=== PATIENT | male | born 1990 | race Caucasian/White ===

== ENCOUNTER 2017-04-02 07:42 | Inpatient (IN) | payer MEDICAID ==
[2017-04-02 08:38] LABS: BASOPHILS 0.2 % (0-2); HEMATOCRIT 43.7 % (42.0-54.0); HEMOGLOBIN 15.4 g/dL (13.5-17.5); IMMATURE GRANULOCYTES 0.2 % (0-5); LYMPHOCYTES 36.6 % (15-50); MCH 30.3 pg (26.0-34.0); MCHC 35.2 g/dL (31.0-37.0); MCV 85.9 fL (80.0-100.0); MEAN PLATELET VOLUME 8.8 fL (7.4-10.4); MONOCYTES 6.9 % (2-11); NEUTROPHILS 54.1 % (40-80); RBC 5.09 10x6/uL (4.20-6.10); RDW 12.3 % (11.5-14.5); WBC 5.9 10x3/uL (4.8-10.8)
[2017-04-02 08:40] LABS: PLATELET COUNT 212 10x3/uL (130-400)
[2017-04-02 08:51] LABS: ALBUMIN 3.9 g/dL (3.4-5.0); ALKALINE PHOSPHATASE 48 U/L (46-116); ALT (SGPT) 35 U/L (10-68); BILIRUBIN - TOTAL 0.38 mg/dL (0.2-1.3); CALC OSMOLALITY 277 mosm/kg (275-300); CALCIUM 9.1 mg/dL (8.5-10.1); CARBON DIOXIDE 27.6 mmol/L (21.0-32.0); CHLORIDE - SERUM 105 mmol/L (98-107); CREATININE - SERUM 1.1 mg/dL (0.6-1.3); GLUCOSE 90 mg/dL (74-106); POTASSIUM - SERUM 4.1 mmol/L (3.5-5.1); PROTEIN - SERUM 7.2 g/dL (6.4-8.2); SODIUM 139 mmol/L (136-145); UREA NITROGEN 12 mg/dL (7-18); eGFR NON AFRICAN AMERICAN 85 mL/min (90-120)
[2017-04-02 09:01] LABS: CKMB 0.6 U/L (0.0-3.6); CREATINE KINASE 91 UL (21-232); TROPONIN-I < 0.017 ng/mL (0.000-0.060)
[2017-04-02 11:26] LABS: APPEARANCE CLEAR (CLEAR); BILIRUBIN NEGATIVE (NEGATIVE); COLOR YELLOW (YELLOW); GLUCOSE NEGATIVE (NEGATIVE); KETONE NEGATIVE (NEGATIVE); NITRITE NEGATIVE (NEGATIVE); PROTEIN NEGATIVE (NEGATIVE); SPECIFIC GRAVITY 1.005 (1.005-1.020); UROBILINOGEN NORMAL (NORMAL)
[2017-04-02 11:41] LABS: UDS - AMPHET NEGATIVE QUAL (NEGATIVE); UDS - BARB NEGATIVE QUAL (NEGATIVE); UDS - BENZO NEGATIVE QUAL (NEGATIVE); UDS - COCAINE NEGATIVE QUAL (NEGATIVE); UDS - OPIATE NEGATIVE QUAL (NEGATIVE); UDS - PCP NEGATIVE QUAL (NEGATIVE); UDS - THC NEGATIVE QUAL (NEGATIVE)
[2017-04-02 14:12] VITALS: BP 121/74; BMI 24.2
[2017-04-02 14:23] VITALS: BP 121/74
--- NOTE | 2017-04-02 14:28 | NUR ---
RECEIVED TO ROOM 2235 VIA WC FROM ED. A/O X3. FATHER AT BEDSIDE. BALANCE IS OFF SLIGHTLY. SOME WEAKNESS NOTED TO RIGHT SIDE. DENIES NEEDS. SKIN IS INTACT WITHOUT REDNESS.
--- NOTE | 2017-04-02 14:43 | NUR ---
PT AOX4 RESP EVEN AND NONLABORED IV TO LEFT AC PATENT AND INTACT PT DENIES PAIN AT THIS TIME SRX2 BED AT LOWEST SETTING CALL LIGHT WITHIN REACH WILL CONTINUE TO MONITOR
[2017-04-02 18:50] LABS: APPEARANCE - CSF CLEAR; RBC - CSF 0 cmm (0-0)
[2017-04-02 19:16] LABS: GLUCOSE - CSF 56 MG/DL (40-75)
[2017-04-02 19:17] LABS: PROTEIN - CSF 62 MG/DL (12-60)
--- NOTE | 2017-04-02 19:47 | NUR ---
REC'D LYING IN BED. ALERT AND ORIENTED X4. DENIED PAIN AT THIS TIME. C/O BLURRED VISION AND NOT BEING ABLE TO PROCESS INFORMATION CORECTLY. HAS SOME RIGHT SIDED WEAKNESS, RIGHT REFRIGERATION ENGINEERING TEACHER ARE OFF. REPORTED BEING OFF BALANCE WHEN HE STANDS UP. INSTRUCTED TO TO GET UP WITHOUT NOTIFYING NURSE OR DIRECTOR OF LABOR AND DELIVERY FIRST. VERBALIZED UNDERSTANDING. INSTRUCTED TO CALL IF NEEDED ANYTHING, VERBALIZED UNDERSTANDING. BED LOW, LOCKED, CALL LIGHT IN REACH. WILL CONT TO MONITOR.
[2017-04-02 20:00] VITALS: BP 136/76
[2017-04-03] VITALS (7 sets, daily range): BP systolic 108–138; BP diastolic 59–84
--- NOTE | 2017-04-03 01:30 | NUR ---
PT RESTING QUIETLY, EYES CLOSED. RESP EVEN, UNLABORED. NO DISTRESS NOTED. CONTINUE BOILER TUBE REAMER'S PLAN OF CARE.
[2017-04-03 05:39] LABS: BASOPHILS 0 % (0-2); EOSINOPHILS 2.3 % (0-7); HEMATOCRIT 40.7 % (42.0-54.0); HEMOGLOBIN 14.3 g/dL (13.5-17.5); IMMATURE GRANULOCYTES 0.2 % (0-5); LYMPHOCYTES 33.8 % (15-50); MCHC 35.1 g/dL (31.0-37.0); MCV 85.5 fL (80.0-100.0); MEAN PLATELET VOLUME 8.7 fL (7.4-10.4); MONOCYTES 8.4 % (2-11); NEUTROPHILS 55.3 % (40-80); PLATELET COUNT 205 10x3/uL (130-400); RBC 4.76 10x6/uL (4.20-6.10); RDW 12.2 % (11.5-14.5); WBC 5.1 10x3/uL (4.8-10.8)
[2017-04-03 06:14] LABS: CALC OSMOLALITY 281 mosm/kg (275-300); CALCIUM 9.1 mg/dL (8.5-10.1); CARBON DIOXIDE 27.7 mmol/L (21.0-32.0); CHLORIDE - SERUM 106 mmol/L (98-107); CREATININE - SERUM 0.9 mg/dL (0.6-1.3); GLUCOSE 102 mg/dL (74-106); SODIUM 142 mmol/L (136-145); UREA NITROGEN 11 mg/dL (7-18); eGFR NON AFRICAN AMERICAN > 90 mL/min (90-120)
--- NOTE | 2017-04-03 07:40 | NUR ---
PT ASSESSMENT COMPLETE SEE FLOW SHEET PT HAS NOTED WEAKNESS TO LEFT UPPER EXTREMITY REPORTED PER OFFGOING NURSE THAT PT HAD RIGHT SIDED WEAKNESS PRIOR. PT CORROBORATES THAT STORY. PT FAMILY AT BEDSIDE. COMPLAINS OF HEADACHE
--- NOTE | 2017-04-03 10:51 | NUR ---
PT RESTING IN BED WITH EYES CLOSED NO ACUTE DISTRESS OTED VOICES ALL NEEDS TO STAFF CALL LIGHT IN REACH.
--- NOTE | 2017-04-03 11:11 | NUR ---
SLEEPING AND POSITIONED ON RIGHT SIDE AT THIS TIME. IV INFUSING WITHOUT S/S OF INFILTRATION PRESENT. FATHER AT BEDSIDE AND CALL LIGHT IN REACH, WILL CONTINUE WITH PLAN OF CARE.
--- NOTE | 2017-04-03 13:55 | NUR ---
PT RESTING IN BED COMPLAINTS OF PAIN TO NECK AND HEADACHE GIVEN TYLENOL PRN. NPO AT THIS TIME AWAITING ABDOMINAL ULTRASOUND
--- NOTE | 2017-04-03 15:56 | NUR ---
PT HAVING ULTRASOUND OF ABDOMEN AT THIS TIME IN ROOM
--- NOTE | 2017-04-03 20:15 | NUR ---
PATIENT RESTING IN BED WITH GUEST AT BEDSIDE AND DENIES NEEDS AT THIS TIME. BED IN LOWEST POSITION AND CALL LIGHT WITHIN REACH. ENCOURAGED THE PATIENT TO CALL IF HE HAS NEEDS.
--- NOTE | 2017-04-03 21:00 | NUR ---
REMINDED THE PATIENT THAT WE NEED A STOOL SAMPLE THE NEXT TIME HE HAS A BM AND COMFIRMED THAT THERE IS A HAT IN THE TOILET AND A SPECIMEN CUP IN THE ROOM. THE PATIENT VERBALIZED UNDERSTANDING.
[2017-04-04 04:06] VITALS: BP 130/82
[2017-04-04 05:49] LABS: BASOPHILS 0 % (0-2); EOSINOPHILS 0 % (0-7); HEMATOCRIT 44.4 % (42.0-54.0); IMMATURE GRANULOCYTES 0.2 % (0-5); LYMPHOCYTES 7.4 % (15-50); MCH 30.5 pg (26.0-34.0); MCV 84.6 fL (80.0-100.0); MONOCYTES 2.9 % (2-11); NEUTROPHILS 89.5 % (40-80); RBC 5.25 10x6/uL (4.20-6.10); RDW 12.1 % (11.5-14.5)
[2017-04-04 05:52] LABS: PLATELET COUNT 277 10x3/uL (130-400); WBC 17.1 10x3/uL (4.8-10.8)
[2017-04-04 06:31] LABS: ALBUMIN 4.4 g/dL (3.4-5.0); ALKALINE PHOSPHATASE 56 U/L (46-116); ALT (SGPT) 34 U/L (10-68); CALC OSMOLALITY 276 mosm/kg (275-300); CALCIUM 9.8 mg/dL (8.5-10.1); CARBON DIOXIDE 22.7 mmol/L (21.0-32.0); CHLORIDE - SERUM 104 mmol/L (98-107); CREATININE - SERUM 1.1 mg/dL (0.6-1.3); GLUCOSE 137 mg/dL (74-106); POTASSIUM - SERUM 4.3 mmol/L (3.5-5.1); PROTEIN - SERUM 7.9 g/dL (6.4-8.2); SODIUM 138 mmol/L (136-145); UREA NITROGEN 11 mg/dL (7-18); eGFR NON AFRICAN AMERICAN 85 mL/min (90-120)
--- NOTE | 2017-04-04 07:50 | NUR ---
ASSESSMENT PER FLOW SHEET.PT WITHOUT DISTRESS, BUT ANXIOUS AND WORRIED.STATES HE WAS WELL AND NEVER HAS BEEN SICK TILL FOUR DAYS AGO. HE ATES HIS RIGHT SIDE IS WEAK,BUT WIRELESS SALES MANAGER ARE EQUAL AND HE HAS FULL ROM. ALSO STATES HIS RIGHT LEG FEELS NUMB. C/O HEADACHE 8/10 SCALE AND STATES HE IS HAVING ACHING AND BURNING PAIN.MONITOR FOR NEEDS
[2017-04-04 10:00] VITALS: BP 108/67
--- NOTE | 2017-04-04 11:47 | NUR ---
VISITORS HAVE LEFT ROOM. PT REMAINS WITHOUT DISTRESS.MONITOR FOR CHANGE.
--- NOTE | 2017-04-04 14:23 | NUR ---
URINE TO LAB ORDERED
[2017-04-04 16:06] VITALS: BP 124/71
--- NOTE | 2017-04-04 18:38 | NUR ---
REMAINS WITHOUT CHANGE FROM INITIAL ASSESSMENT.CONT PLAN OF CARE
--- NOTE | 2017-04-04 20:30 | NUR ---
PATIENT RESTING IN BED AND DENIES NEEDS AT THIS TIME. DURING PATIENT'S ASSESSMENT HE STATED THAT HE HAS A "STRANGE NUMB FEELING" IN HIS RIGHT ARM AND LEG. HE ALSO STATED THAT WHEN MOVES HIS ARM/LEG AGAINST ANYTHING IT FEELS LIKE HE IS BEING CUT. PATIENT CONTINUES TO HAVE A DIFFICULT TIME PUTTING SENCTENCES TOGETHER AND IS SLOW TO RESPOND. PATIENT HAS NO VISIBLE SIGNS OF DISTRESS. BED IN LOWEST POSITION AND CALL LIGHT WITHIN REACH. ENCOURAGED THE PATIENT TO CALL IF HE HAS NEEDS.
[2017-04-04 20:43] VITALS: BP 152/83
[2017-04-05] VITALS: BP 140/66
[2017-04-05 04:00] VITALS: BP 120/72
[2017-04-05 05:19] LABS: BASOPHILS 0 % (0-2); EOSINOPHILS 0 % (0-7); HEMATOCRIT 42.4 % (42.0-54.0); HEMOGLOBIN 14.8 g/dL (13.5-17.5); IMMATURE GRANULOCYTES 0.2 % (0-5); LYMPHOCYTES 6.2 % (15-50); MCH 29.9 pg (26.0-34.0); MCHC 34.9 g/dL (31.0-37.0); MCV 85.7 fL (80.0-100.0); MONOCYTES 2.5 % (2-11); NEUTROPHILS 91.1 % (40-80); PLATELET COUNT 257 10x3/uL (130-400); RBC 4.95 10x6/uL (4.20-6.10); RDW 12.6 % (11.5-14.5); WBC 15.3 10x3/uL (4.8-10.8)
[2017-04-05 05:27] LABS: CALC OSMOLALITY 279 mosm/kg (275-300); CALCIUM 9.2 mg/dL (8.5-10.1); CARBON DIOXIDE 25.8 mmol/L (21.0-32.0); CHLORIDE - SERUM 107 mmol/L (98-107); CREATININE - SERUM 1.1 mg/dL (0.6-1.3); GLUCOSE 123 mg/dL (74-106); POTASSIUM - SERUM 4.1 mmol/L (3.5-5.1); SODIUM 140 mmol/L (136-145); UREA NITROGEN 13 mg/dL (7-18); eGFR NON AFRICAN AMERICAN 85 mL/min (90-120)
--- NOTE | 2017-04-05 07:45 | NUR ---
ASSESSMENT PER FLOW SHEET.BETTER AT PUTTING WORDS TOGETHER TODAY.STATES PAIN TO POSTERIOR NECK AND HEAD BETTER TODAY,BUT STILL HAS ACHING BURNING SENSATION.STATES RIGHT SIDE IS STILL NUMB.FAMILY AT BEDSIDE.
[2017-04-05 08:11] LABS: HIV 1 & 2- RAPID SCREEN NEGATIVE (NEGATIVE)
[2017-04-05 08:31] VITALS: BP 120/76
--- NOTE | 2017-04-05 09:58 | NUR ---
NPO FOR CT
[2017-04-05 12:28] VITALS: BP 116/67
--- NOTE | 2017-04-05 13:15 | NUR ---
Patient Name: DEBI MARVIN Admission Status: ER Accout number: [id number] Admission Date: 04-02-2017 : 1990 Admission Diagnosis: Attending: KRISTY WHITE Current LOS: 3 Anticipated DC Date: 04-08-2017 Planned Disposition: Home Primary Insurance: UNINSURED DISCOUNT PLAN Discharge Planning Comments: CM MET WITH PATIENT, GIRLFRIEND (BRIAN), DAD (ADRIANNA) ALSO PRESENT. PATIENT LIVES WITH GIRLFRIEND AND SHE OR FAMILY WILL DRIVE HIM HOME AT DISCHARGE. PATIENT WAS INDEPENDENT AT HOME AND HAS NO DME. PATIENT DOES NOT HAVE A PCP AND USES [facility] [address] FOR HIS PHARMACY. PATIENT DOES NOT WANT HOME HEALTH AND STATED HE IS FINE. CM WILL CONTINUE TO FOLLOW PATIENT WITH D/C NEEDS AND PLANS. PCP NONE [facility] [address] [phone] BRIAN (GF) [phone] Social Security Benefits Interviewer: Christiana Scott Is the patient Alert and Oriented? Yes 0 * How many steps to enter\exit or inside your home? 0 0 * PCP NONE 0 * Pharmacy [facility] [address] 0 * Preadmission Environment Home with Family 0 * ADLs Independent 0 * Equipment None 0 * List name and contact numbers for known caregivers / representatives who currently or will assist patient after discharge: BRIAN BEVERLY (GIRLFRIEND) [phone] 0 * Community resources currently utilized None 0 * Additional services required to return to the preadmission environment? Yes 0 * Can the patient safely return to the preadmission environment? Yes 0 * Has this patient been hospitalized within the prior 30 days at any hospital? No 0 Grand Total: 0
[2017-04-05 16:38] VITALS: BP 120/70
--- NOTE | 2017-04-05 16:48 | NUR ---
IV RESITED TO RIGHT FOREARM PER PT REQUEST.IV LEFT WRIST KEPT MACHINE BEEPING AND WAS DCD WITH CATH INTACT.
--- NOTE | 2017-04-05 20:04 | NUR ---
PATIENT RESTING IN BED AND DENIES NEEDS AT THIS TIME. BED IN LOWEST POSITION AND CALL LIGHT WITHIN REACH. ENCOURAGED THE PATIENT TO CALL IF HE HAS NEEDS.
[2017-04-06] VITALS: BP 117/82
[2017-04-06 04:00] VITALS: BP 141/77
[2017-04-06 07:25] LABS: RAPID PLASMA REAGIN Non Reactive (Non Reactive)
--- NOTE | 2017-04-06 07:40 | NUR ---
PT HAS SOME RIGHT SIDED WEAKNESS, SOME SLURRED WORDS, PAIN MEDS GIVEN FOR PAIN LEVEL 5, DENIES NEEDS, BED LOWEST POSITION, CALL LIGHT IN REACH, WILL CONTINUE TO MONITOR
[2017-04-06 08:26] VITALS: BP 122/73
--- NOTE | 2017-04-06 08:40 | NUR ---
PATIENT IN BED WITH EYES CLOSED RESTING QUIETLY. NO COMPLAINTS OR SIGNS OF DISTRESS. CALL LIGHT WITHIN REACH.
[2017-04-06 12:56] VITALS: BP 142/86
[2017-04-06 16:27] VITALS: BP 127/83
[2017-04-06 20:00] VITALS: BP 134/86
[2017-04-06 21:08] LABS: HSV 1 DNA (PCR) Negative (Negative); HSV 2 DNA (PCR) Negative (Negative); IGGS - IGG INDEX CSF 0.8 (0.0-0.7); IGGS - IGG SYNTHESIS RATE CSF 9.8 mg/day (-9.9 TO +3.3)
[2017-04-07] VITALS (16 sets, daily range): BP systolic 104–138; BP diastolic 59–98; BMI 24.6
[2017-04-07 05:37] LABS: BASOPHILS 0 % (0-2); EOSINOPHILS 0.1 % (0-7); HEMATOCRIT 39.2 % (42.0-54.0); HEMOGLOBIN 14.1 g/dL (13.5-17.5); IMMATURE GRANULOCYTES 0.1 % (0-5); LYMPHOCYTES 10.6 % (15-50); MCH 30.4 pg (26.0-34.0); MCV 84.5 fL (80.0-100.0); MEAN PLATELET VOLUME 9.3 fL (7.4-10.4); MONOCYTES 5.4 % (2-11); NEUTROPHILS 83.8 % (40-80); PLATELET COUNT 241 10x3/uL (130-400); RBC 4.64 10x6/uL (4.20-6.10); RDW 12.4 % (11.5-14.5)
[2017-04-07 05:48] LABS: WBC 10.9 10x3/uL (4.8-10.8)
[2017-04-07 05:54] LABS: CALC OSMOLALITY 276 mosm/kg (275-300); CALCIUM 8.6 mg/dL (8.5-10.1); CARBON DIOXIDE 24.3 mmol/L (21.0-32.0); CHLORIDE - SERUM 106 mmol/L (98-107); CREATININE - SERUM 0.9 mg/dL (0.6-1.3); GLUCOSE 100 mg/dL (74-106); POTASSIUM - SERUM 3.6 mmol/L (3.5-5.1); SODIUM 138 mmol/L (136-145); UREA NITROGEN 15 mg/dL (7-18); eGFR NON AFRICAN AMERICAN > 90 mL/min (90-120)
--- NOTE | 2017-04-07 05:59 | NUR ---
ATTEMPTED TO HAVE PATIENT SIGN CONSENT FORMS FOR PROCEDURE. PATIENT WAS UNABLE TO SIGN CONSENTS AND ASKED THAT HIS DAD SIGN THEM WHEN HE ARRIVES THIS MORNING.
--- NOTE | 2017-04-07 07:00 | NUR ---
REPORT RECIEVED ASSUMED CARE. PATIENT IN BED WITH IV INTACT. NO COMPLAINTS AT THIS TIME. IV INTACT. FAMILY AT BEDSIDE.
--- NOTE | 2017-04-07 08:00 | NUR ---
ASSESSMENT COMPLETE VS STABLE. NO COMPLAINTS AT THIS TIME. IV INTACT. CALL LIGHT WITHIN REACH.
--- NOTE | 2017-04-07 09:40 | NUR ---
PATIENT RECIEVED PREOP MEDS AT THIS TIME WITH A SIP OF WATER. NO COMPLAINTS. CALL LIGHT WITHIN REACH.
--- NOTE | 2017-04-07 10:00 | NUR ---
PATIENT TO OR.
--- NOTE | 2017-04-07 14:40 | NUR ---
Rehab Note- Acute Rehab Prescreen order received. The patient has no payer source for acute inpatient rehab at this time. Thank you for this referral! Slime Perdomo RN Clinical Liaison, [facility] Rehab
--- NOTE | 2017-04-07 15:26 | NUR ---
ADMIT TO ICU. VOICES NO CO AT TIME. SPEECH IS BROKEN LANGUAGE.
--- NOTE | 2017-04-07 16:40 | NUR ---
Speech therapy here in to see patient see speech therapy notes.
--- NOTE | 2017-04-07 18:00 | NUR ---
ICE PACK GIVEN FOR HEADACHE. CALL LIGHT WITHIN REACH AND BED IN LOW POSITION.
--- NOTE | 2017-04-07 19:15 | NUR ---
SHIFT ASSESSMENT COMPLETE. PT IS SCREAMING AND STATING THAT HE IS OVER STIMULATED BY ALL OF THE NOISES AND LIGHTS IN THE HOSPITAL. DAY SHIFT NURSE AT BEDSIDE ADMINISTERING PRN PAIN MEDICATION. REPOSITIONED FOR COMFORT. ICE PACK PROVIDED PER REQUEST. WILL PAGE DR. MENSAH FOR STRONGER PAIN MEDICATION.
--- NOTE | 2017-04-07 19:27 | NUR ---
PATIENT COMPLAINT OF HEADACHE MED GIVEN PER ORDER. ICE PACK IS HELPING ON HIS NECK AT THIS TIME.
--- NOTE | 2017-04-07 21:00 | NUR ---
FAMILY AT BEDSIDE. PT IS STILL COMPLAINING OF PAIN A 04/27. HE STATES THAT HE IS GETTING NO RELIEF FROM HIS PAIN MEDICATIONS. REPOSITONED FOR COMFORT. REFILLED REFRESHMENTS. WILL PAGE DR. MENSAH AGAIN.
--- NOTE | 2017-04-07 22:20 | NUR ---
NEW ORDERS RECIEVE PER DR. MENSAH 4 MG MORPHINE Q2HPRN IV ADMINISTERED PRN PAIN MED AND PT STATES THAT HE IS THANKFUL FOR SOME RELIEF. NO FURTHER REQUESTS AT THIS TIME.
--- NOTE | 2017-04-07 23:30 | NUR ---
REASSESSMENT COMPLETE. PT STATES THAT HIS PAIN HAS DECREASED AND THAT HE IS GETTING REST. HE HAS NO COMPLAINTS AT THIS TIME. BANDAGE IS CDI. PERRLA, 3 MM, BRISK REACTION TO LIGHT. EQUAL AND STRONG HAND AGRONOMY TEACHER AND FOOT PUMPS. SPEECH IS CLEAR, BUT HE DOES HESITIATE WHEN HE IS TRYING TO SPEAK. REFILLED REFRESHMENTS. ASSISTED WITH URINATION. WILL CONT TO MONITOR.
[2017-04-08] VITALS (17 sets, daily range): BP systolic 112–137; BP diastolic 67–88; BMI 23.9
--- NOTE | 2017-04-08 01:00 | NUR ---
PT IS RESTING COMFORTABLY AT THIS TIME. VSS. WILL CONT WITH POC.
--- NOTE | 2017-04-08 03:00 | NUR ---
REASSESSMENT COMPLETE AT THIS TIME. PT STATES THAT HIS PAIN IS A 4/10 AND REQUESTS 1/2 OF HIS MORPHINE DOSE. ADMINISTERED 2 MG OF PRN MORPHINE PER REQUEST. WASTED THE OTHER 2 MG IN THE SHARPS CONTAINER. REPOSITIONED FOR COMFORT. VSS. BANDAGE CDI. WILL CONT TO MONITOR.
--- NOTE | 2017-04-08 05:00 | NUR ---
PT RESTING PEACEFULLY WITH NO COMPLAINTS AT THIS TIME. SPEECH IS IMPROVING. REFILLED REFRESHMENTS. WILL CONT WITH POC.
--- NOTE | 2017-04-08 07:15 | NUR ---
PT RESTING QUIETLY WITH EYES CLOSED AT THIS TIME. CALL LIGHT WITHIN REACH, BED IN LOW POSITION.
--- NOTE | 2017-04-08 08:04 | NUR ---
DR. WHITE HERE IN TO SEE PATIENT. DR. EDWARDS ALSO HERE TO SEE PATIENT.
--- NOTE | 2017-04-08 09:30 | NUR ---
HAD PATIENT PERFORM EYE TEST WITH EACH EYE. PATIENT IS UNABLE TO READ AT ARMS DISTANCE. PATIENT HAS BLURRED VISION WITH BOTH EYES, AND WITH EACH EYE WHILE COVERING OPPISITE EYE.
--- NOTE | 2017-04-08 11:57 | NUR ---
PATIENT AROUSES EASILY TO VERBAL STIMULI WITH NO CHANGES IN AM ASSESSMENT.
--- NOTE | 2017-04-08 13:46 | NUR ---
OT IN WITH PATIENT AT THIS TIME.
--- NOTE | 2017-04-08 15:40 | NUR ---
REPORT CALLED TO MED SURG TO ELISA PERRY FOR PATIENT TO TRANSFER TO ROOM 2209. WAITIN ON ROOM TO BE CLEANED.
--- NOTE | 2017-04-08 16:57 | NUR ---
PATIENT TRANSFERRED TO W/C WITH MINIMAL ASSIST. PATIENT TRASPORTED VIA W/C TO ROOM 2209 IN STABLE CONDITION.
--- NOTE | 2017-04-08 17:17 | NUR ---
RECEIVED TO ROOM FROM ICU AT THIS TIME. ALERT AND ORIENTED WITH SLOW SPEECH. ASSISTED PT TO BATHROOM WHERE HE VOIDED WITHOUT DIFFICULTY. ASSISTED BACK TO BED WITH CALL LIGHT IN REACH AND BED ALARM ON.
--- NOTE | 2017-04-08 19:41 | NUR ---
PT IS SITTING IN BED VISITING WITH FRIEND, REQUESTED PAIN SHOT STATED PAIN IS AT A 7, BED IN LOW POSITION, CALL LIGHT IN REACH, ADMIN MORHINE TO AIDE WITH PAIN
[2017-04-08 20:09] LABS: AFB SPECIMEN PROCESSING Tissue Grinding (())
--- NOTE | 2017-04-08 20:45 | NUR ---
PT REQUESTED PAIN MEDICATION, ADVISED PT JUST GIVEN MORPHINE AT 1950 WOULD NEED TO BE CLOSER TO 2200 BEFORE i CAN GIVE IT, BED IN LOW POSITION CALL LIGHT IN REACH
--- NOTE | 2017-04-08 22:50 | NUR ---
PT CALLED ME INTO ROOM WANTING TO KNOW WHEN ANTIBIOTICS AND PAIN MEDS WOULD BE GIVEN, REMINDED PT MORPHINE WAS JUST GIVEN AT 2200 WOULD NEED TO BE CLOSER TO MIDNIGHT BEFORE I CAN, GAVE PT AN ICE PACK TO ASSIST WITH THE PAIN RELIEF. WILL CONTINUE TO MONITOR PT
--- NOTE | 2017-04-09 00:21 | NUR ---
PT ASKED FOR ENSURE WAS ABLE TO FIND A VANILLA AND A CHOCOLATE FOR PT
[2017-04-09 00:40] VITALS: BP 110/75
--- NOTE | 2017-04-09 01:27 | NUR ---
PATIENT IS RESTING QUIETLY WITH EYES CLOSED. LAYING ON HIS RIGHT SIDE. HOB 45 DEGREES. BED IN LOWEST POSITION, CALL LIGHT IN REACH. BED RIALS UP X'S 2.
--- NOTE | 2017-04-09 03:26 | NUR ---
PRN MORPHINE GIVEN AT THIS TIME FOR PAIN /10. STAND BY ASSIST TO BATHROOM. JUICE W/THICK IT PROVIDED. CALL LIGHT IN REACH. WILL CONTINUE TO MONITOR.
[2017-04-09 04:56] VITALS: BP 121/75
[2017-04-09 05:38] LABS: BASOPHILS 0 % (0-2); EOSINOPHILS 0 % (0-7); HEMATOCRIT 38.7 % (42.0-54.0); HEMOGLOBIN 14.1 g/dL (13.5-17.5); IMMATURE GRANULOCYTES 0.3 % (0-5); LYMPHOCYTES 3.4 % (15-50); MCH 30.1 pg (26.0-34.0); MCHC 36.4 g/dL (31.0-37.0); MCV 82.5 fL (80.0-100.0); MEAN PLATELET VOLUME 9.2 fL (7.4-10.4); MONOCYTES 7.7 % (2-11); NEUTROPHILS 88.6 % (40-80); PLATELET COUNT 257 10x3/uL (130-400); RBC 4.69 10x6/uL (4.20-6.10); RDW 12.4 % (11.5-14.5); WBC 20.4 10x3/uL (4.8-10.8)
[2017-04-09 05:41] LABS: CALC OSMOLALITY 280 mosm/kg (275-300); CALCIUM 8.8 mg/dL (8.5-10.1); CARBON DIOXIDE 27.5 mmol/L (21.0-32.0); CHLORIDE - SERUM 104 mmol/L (98-107); CREATININE - SERUM 0.9 mg/dL (0.6-1.3); GLUCOSE 120 mg/dL (74-106); SODIUM 138 mmol/L (136-145); UREA NITROGEN 23 mg/dL (7-18); eGFR NON AFRICAN AMERICAN > 90 mL/min (90-120)
--- NOTE | 2017-04-09 07:24 | NUR ---
SLEEPING AT THIS TIME WITH RESPIRATIONS EVEN AND NON LABORED. CALL LIGHT IN REACH AND BED ALARM ON. WILL CONTINUE WITH PLAN OF CARE.
--- NOTE | 2017-04-09 08:29 | NUR ---
SCHEDULED MEDICATIONS AND PRN MORPHINE ADMINISTERED AT THIS TIME. BED ALARM ON AND CALL LIGHT IN REACH, WILL CONTINUE WITH PLAN OF CARE.
--- NOTE | 2017-04-09 09:26 | NUR ---
FIRST DOSE OF VANC ADMINISTERED AT THIS TIME AND SET TO BE RAN OVER TWO HOURS.
[2017-04-09 09:39] VITALS: BP 134/75
--- NOTE | 2017-04-09 10:18 | NUR ---
PRN MORPHINE ADMINISTERED PER ORDER AT THIS TIME FOR PAIN.
--- NOTE | 2017-04-09 12:18 | NUR ---
PRN MORPHINE ADMINISTERED AT THIS TIME.
--- NOTE | 2017-04-09 12:49 | NUR ---
IV DISONNECTED SO PT'S FATHER COULD HELP HIM SHOWER. INSTRUCTED PT NOT TO GET HIS HEAD WET AND HE VERBALIZED UNDERSTANDING.
[2017-04-09 13:06] VITALS: BP 152/82
[2017-04-09 13:17] LABS: FUNGUS STAIN Final report (())
--- NOTE | 2017-04-09 14:17 | NUR ---
PRN MORPHINE ADMINISTERED AT THIS TIME FOR PAIN.
--- NOTE | 2017-04-09 16:25 | NUR ---
PRN MORPHINE ADMINISTERED AT THIS TIME FOR PAIN.
[2017-04-09 16:59] VITALS: BP 125/76
[2017-04-09 20:00] VITALS: BP 139/82
--- NOTE | 2017-04-09 20:07 | NUR ---
AWAKE,ALERT,NO COMPLAINTS AT PRESENT. SPEECH IS SLOW BUT ABLE TO MAKE NEEDS KNOWN. IV INTACT TO LEFT HAND WIHTOUT REDNESS OR ROBERTO NOTED. DRSG INTACT TO HEAD WIHTOUT DRAINAGE NOTED. CL IN REACH. FAMILY AT BEDSIDE.
[2017-04-10 00:08] VITALS: BP 132/88
--- NOTE | 2017-04-10 03:37 | NUR ---
ASSESSED, PT IS ASLEEP WITH EASY RESPIRATONS AND NO DISTRESS NOTED. HE HAS A CLEAN DRY DRESSING TO HIS HEAD AND TELEMETRY IN PLACE. THE BED IS LOW, RAILS UP X'S 2 WITH THE CALL LIGHT AT HAND.
[2017-04-10 04:00] VITALS: BP 119/70
[2017-04-10 04:13] LABS: OVA + PARASITE EXAM Final report (())
--- NOTE | 2017-04-10 05:44 | NUR ---
MORPHINE GIVEN FOR COMPLAINTS OF PAIN. DRSG TO HEAD REMAINS DRY AND INTACT. CL IN REACH
--- NOTE | 2017-04-10 07:40 | NUR ---
ASSESSMENT COMPLETE. IV TO L HAND PATENT. NS INFUSING AT 75 CC/HR VIA PUMP. SL TO L FA. NUCLEAR PLANT OPERATOR SHOWING SR 72 PER TECH. DRESSING INTACT TO HEAD. COMPLAINING OF HEADACHE. SLIGHT RIGHT SIDED WEAKNESS.
[2017-04-10 08:03] VITALS: BP 155/75
--- NOTE | 2017-04-10 12:00 | NUR ---
NO CHANGES NOTED. RESTING QUIETLY IN BED.
[2017-04-10 12:42] VITALS: BP 139/82
[2017-04-10 16:16] VITALS: BP 129/67
[2017-04-10 18:36] VITALS: BP 142/76
--- NOTE | 2017-04-10 19:48 | NUR ---
PATIENT AWAKE AND ALERT. DID A DRESSING CHANGE TO THE TOP OF HIS HEAD. INCISION DID NOT APPEAR TO BE INFECTED AND WAS WELL APPROXIMATED AND CLOSED WITH MICHAEL. NON-ADHARENT DRESSING WAS CUT IN HALF AND SECURED WITH PAPER TAPE. NO OTHER NEEDS NOTED AT THIS TIME.
--- NOTE | 2017-04-10 22:21 | NUR ---
ICE PACK GIVEN FOR HEADACHE
[2017-04-11] VITALS: BP 116/83
[2017-04-11 04:00] VITALS: BP 127/78
[2017-04-11 05:00] LABS: BASOPHILS 0 % (0-2); EOSINOPHILS 0.1 % (0-7); HEMATOCRIT 40.5 % (42.0-54.0); HEMOGLOBIN 14.4 g/dL (13.5-17.5); IMMATURE GRANULOCYTES 0.9 % (0-5); MCHC 35.6 g/dL (31.0-37.0); MCV 84.4 fL (80.0-100.0); MEAN PLATELET VOLUME 9.4 fL (7.4-10.4); MONOCYTES 5.1 % (2-11); NEUTROPHILS 88.9 % (40-80); PLATELET COUNT 280 10x3/uL (130-400); RDW 12.6 % (11.5-14.5); WBC 16.6 10x3/uL (4.8-10.8)
[2017-04-11 05:19] LABS: ALBUMIN 3.2 g/dL (3.4-5.0); ALKALINE PHOSPHATASE 42 U/L (46-116); ALT (SGPT) 101 U/L (10-68); CALC OSMOLALITY 277 mosm/kg (275-300); CALCIUM 9.1 mg/dL (8.5-10.1); CARBON DIOXIDE 27.4 mmol/L (21.0-32.0); CHLORIDE - SERUM 103 mmol/L (98-107); CREATININE - SERUM 0.8 mg/dL (0.6-1.3); GLUCOSE 118 mg/dL (74-106); POTASSIUM - SERUM 4.2 mmol/L (3.5-5.1); PROTEIN - SERUM 6.7 g/dL (6.4-8.2); SODIUM 137 mmol/L (136-145); UREA NITROGEN 21 mg/dL (7-18); eGFR NON AFRICAN AMERICAN > 90 mL/min (90-120)
--- NOTE | 2017-04-11 05:39 | NUR ---
RN NOTE: PT RESTING QUIETLY IN SUPINE POSITION WITH EYES CLOSED AND UNLABORED BREATHING. IV IN LEFT FA PATENT WITH NS INFUSING AT 75 ML / HR. WILL CONITINUE TO MONITOR FOR NEEDS.
[2017-04-11 08:35] VITALS: BP 122/70
--- NOTE | 2017-04-11 10:15 | NUR ---
PT AOX4 RESP EVEN AND NONLABORED PT DENIES NEEDS AT THIS TIME IV TO RIGHT FOREARM PATENT AND INTACT AT THIS TIME SRX2 BED AT LOWESTS SETTING AT THIS TIME CALL LIGHT WITHIN REACH WILL CONTINUE TO MONITOR
[2017-04-11 12:51] VITALS: BP 118/75
[2017-04-11 16:06] VITALS: BP 131/75
--- NOTE | 2017-04-12 03:19 | NUR ---
RN NOTE: PT RESTING QUIETLY IN HIGH ROMERO'S POSITION WITH EYES CLOSED AND EASY RESPIRATIONS. INCISION ON HEAD WELL APPROXIMATED WITH MICHAEL. LEFT FA IV PATENT WITH NS INFUSING AT 75 ML / HR. TELEMETRY IN PLACE AND READING 65 SR AT THIS ASSESSMENT. WILL CONTINUE TO MONITOR FOR NEEDS. CALL LIGHT WITHIN REACH.
[2017-04-12 04:00] VITALS: BP 124/81
[2017-04-12 05:14] LABS: BASOPHILS 0 % (0-2); EOSINOPHILS 0 % (0-7); HEMATOCRIT 40.7 % (42.0-54.0); HEMOGLOBIN 14.6 g/dL (13.5-17.5); IMMATURE GRANULOCYTES 1.1 % (0-5); LYMPHOCYTES 4.9 % (15-50); MCH 29.9 pg (26.0-34.0); MCHC 35.9 g/dL (31.0-37.0); MCV 83.4 fL (80.0-100.0); MEAN PLATELET VOLUME 9.3 fL (7.4-10.4); MONOCYTES 4.8 % (2-11); NEUTROPHILS 89.2 % (40-80); PLATELET COUNT 309 10x3/uL (130-400); RBC 4.88 10x6/uL (4.20-6.10); RDW 12.6 % (11.5-14.5); WBC 16.4 10x3/uL (4.8-10.8)
[2017-04-12 05:29] LABS: ALKALINE PHOSPHATASE 43 U/L (46-116); CALC OSMOLALITY 277 mosm/kg (275-300); CALCIUM 8.7 mg/dL (8.5-10.1); CHLORIDE - SERUM 104 mmol/L (98-107); CREATININE - SERUM 0.8 mg/dL (0.6-1.3); GLUCOSE 112 mg/dL (74-106); POTASSIUM - SERUM 4.4 mmol/L (3.5-5.1); PROTEIN - SERUM 6.3 g/dL (6.4-8.2); SODIUM 137 mmol/L (136-145); UREA NITROGEN 21 mg/dL (7-18); eGFR NON AFRICAN AMERICAN > 90 mL/min (90-120)
[2017-04-12 05:42] LABS: ALT (SGPT) 170 U/L (10-68)
--- NOTE | 2017-04-12 08:00 | NUR ---
ASSESSMENT PER FLOW SHEET.PT WITHOUT DISTRESS.STATES HAS HEADACHE AND WANTS MEDS WHEN TIME. SLOW TO RESPOND VERBALLY WITH WORDS,BUT BETTER.STATES STILL SOME NUMBNESS AND WEAKNESS TO RIGHT SIDE.MONITOR FOR NEEDS
[2017-04-12 08:57] VITALS: BP 124/82
[2017-04-12 12:56] VITALS: BP 131/72
--- NOTE | 2017-04-12 16:12 | NUR ---
UP IN ROOM TO BATHROOM.GAAIT STEADY.WITHOUT DISTRESS.MONITOR FOR NEEDS
[2017-04-12 16:53] VITALS: BP 131/72
--- NOTE | 2017-04-12 19:10 | NUR ---
OT NOTE: PT COMPLETED BED MOB WITH SBA. PT COMPLETD SIT TO STAND WITH SBA. PT COMPLETED SIMPLE GROOMING WITH SBA. PT COMPLETED BUE AROM EXS FOR INCREASED I WITH ADLS. PT REQUIRES VERBAL CUES FOR INCREASED SAFETY. THANK YOU, AMISH BRAGA/Rupinder
[2017-04-12 20:00] VITALS: BP 104/74
--- NOTE | 2017-04-13 00:43 | NUR ---
REC'D. AT CHGE. OF SHIFT IN BED ALERT ORIENTED X3.LESA AT 3MM BILAT.EXPRESSIVE APHASIA OBSERVED.MICHAEL TO INCISION TOP OF HEAD. NO DRSG. REDNESS OR DRAINAGE NOTED.CONTINUES TO COMPLAIN OF RIGHT SIDED WEAKNESS. PLANT SUPERVISOR STRONG BUT MILDLY WEAKER ON RIGHT.WILL CONTINUE TO MONITOR FOR ANY CHGES. AND FOLLOW CURRENT PLAN OF CARE.
[2017-04-13 04:00] VITALS: BP 132/83
--- NOTE | 2017-04-13 07:45 | NUR ---
PT ASSESSMENT COMPLETE AWAKE AND ALERT ORIENTED X 3 LUNGS LAERT BILATERALLY HAS SOME SLOW SPEECH NOTED AND SAYS WORDS WRONG REALIZES HE HAS MISPOKEN AND GETS FRUSTRATED. BILATERAL HAND ASSISTANT SOFTBALL COACH ARE EQUAL AT THIS TIME. ALL ALD SPER STAFF STAND BY ASSIST. 15 MICHAEL NOTED TO SCALP FROM BX SITE OPEN TO AIR NO REDNESS OR SIGNS OF INFECTION NOTED. WILL MONITOR.
[2017-04-13 08:29] VITALS: BP 126/85
[2017-04-13 11:30] VITALS: BP 122/69
--- NOTE | 2017-04-13 13:30 | NUR ---
AWAKE AND ALERT WITH RESPIRATIONS EVEN AND NON LABORED. INCISION TO HEAD WITH MICHAEL INTACT. DENIES NEEDS AT THIS TIME. CALL LIGHT IN REACH, WILL CONTINUE WITH PLAN OF CARE.
--- NOTE | 2017-04-13 14:12 | NUR ---
OT NOTE: PT SEEN TODAY WITH SLIGHTLY IMPROVED ROOM CLERK STRENGTH.. STRENGTH EVEN NENA. CONTINUES TO HAVE DEFECITS WITH COORDINATION AND PROCESSING. EASILY FRUSTRATED WITH R HAND COORDINATION AND WORD FINDING ISSUES. WILL CONT WITH MANIPULATION TYPE ACT FOR R HAND
--- NOTE | 2017-04-13 15:46 | NUR ---
PT HAD HYDROCODONE AT 1300 REQUESTING PAIN MEDS EXPLAINED THAT HIS NEXT DOSING WAS NOT UNTIL 1700 PT COMPLAINS OF SEVERE HEADACHE AND REQUESTS THAT CALL BE PLACED TO DR TO OBTIAN MEDS TO STOP THE HEADACHE. PT IS VERY ANXIOUS AND CRYING AT THIS TIME.
[2017-04-13 16:27] VITALS: BP 130/74
--- NOTE | 2017-04-13 19:49 | NUR ---
OT NOTE: PT COMPLETED BED MOB WITH SUPV. PT COMPLETED EOB SITTING WITH BUE GROSS MOTOR AXS WITH SBA. PT COMPLETED FM COORDINATION TASKS TO INCREASE I WITH ADL TASKS. THANK YOU, AMISH BRAGA/Rupinder
[2017-04-14] VITALS: BP 139/86
--- NOTE | 2017-04-14 03:45 | NUR ---
PATIENT RESTING IN BED WITH C/O 6/10 PAIN IN HIS HEAD. ADMINISTERED PATIENT'S ZOSYN AND MORPHINE PER ORDERS. BED IN LOWEST POSITION AND CALL LIGHT WITHIN REACH. ENCOURAGED THE PATIENT TO CALL IF HE HAS NEEDS.
[2017-04-14 04:00] VITALS: BP 130/71
[2017-04-14 06:08] LABS: BASOPHILS 0.1 % (0-2); EOSINOPHILS 0 % (0-7); HEMATOCRIT 40.5 % (42.0-54.0); HEMOGLOBIN 14.7 g/dL (13.5-17.5); IMMATURE GRANULOCYTES 1.2 % (0-5); LYMPHOCYTES 4.4 % (15-50); MCH 30.1 pg (26.0-34.0); MCHC 36.3 g/dL (31.0-37.0); MCV 82.8 fL (80.0-100.0); MEAN PLATELET VOLUME 9.2 fL (7.4-10.4); MONOCYTES 3.7 % (2-11); NEUTROPHILS 90.6 % (40-80); PLATELET COUNT 297 10x3/uL (130-400); RBC 4.89 10x6/uL (4.20-6.10); RDW 12.5 % (11.5-14.5); WBC 17.2 10x3/uL (4.8-10.8)
[2017-04-14 06:33] LABS: ALBUMIN 2.9 g/dL (3.4-5.0); ALKALINE PHOSPHATASE 40 U/L (46-116); ALT (SGPT) 128 U/L (10-68); CALC OSMOLALITY 275 mosm/kg (275-300); CALCIUM 8.4 mg/dL (8.5-10.1); CARBON DIOXIDE 26.6 mmol/L (21.0-32.0); CHLORIDE - SERUM 103 mmol/L (98-107); CREATININE - SERUM 0.9 mg/dL (0.6-1.3); GLUCOSE 113 mg/dL (74-106); POTASSIUM - SERUM 4.4 mmol/L (3.5-5.1); SODIUM 136 mmol/L (136-145); UREA NITROGEN 20 mg/dL (7-18); eGFR NON AFRICAN AMERICAN > 90 mL/min (90-120)
--- NOTE | 2017-04-14 07:20 | NUR ---
PATIENT RECEIVED ALERT IN MID ROMERO POSITION. NO SIGNS OF DISTRESS NOTED. DENIES NEEDS. SIDE RAILS UP X2. BED IN LOW POSITION. CALL LIGHT IN REACH.
[2017-04-14 07:55] VITALS: BP 131/74
--- NOTE | 2017-04-14 08:55 | NUR ---
PATIENT ALERT IN BED WITH FAMILY PRESENT. NO SIGNS OF DISTRESS NOTED. RATES PAIN 5/10 AND STATES "FEELING MUCH BETTER." DENIES NEEDS. SCHEDULED MEDICATION ADMINISTERED. SIDE RAILS UP X2. BED IN LOW POSITION. CALL LIGHT IN REACH.
--- NOTE | 2017-04-14 10:23 | NUR ---
C/O PAIN 02/25. NORCO GIVEN PER PRN ORDER. DENIES FURTHER NEEDS. BED IN LOW POSITION. SIDE RAILS UP X2. CALL LIGHT IN REACH.
--- NOTE | 2017-04-14 10:34 | NUR ---
MET WITH PATIENT AND PATIENT'S FATHER TO DISCUSS DISCHARGE PLANNING. FATHER STATES THAT THE PATIENT WILL BE COMING HOME TO HIS HOUSE FOR HIS RECOVERY. TALKED ABOUT HOME HELATH AND FAMILY PICKED ROSENDO CONTRERAS SIGNED AND PLACED IN CHART. CM WILL CONTINUE TO FOLLOW AND ASSIST WITH DISHCARGE PLANNING NEEDS
--- NOTE | 2017-04-14 11:13 | NUR ---
DR DEL RIO WANTS TO TRANSFER PATIENT TO MD [facility] CALLED AND REFERRAL STARTED FOR THE TRANSFER
--- NOTE | 2017-04-14 11:46 | NUR ---
DR DEL RIO HAS AN ACCEPTING MD -->DR CASILLAS WITH INTERNAL MEDIC[facility] AT [facility]
--- NOTE | 2017-04-14 12:00 | NUR ---
SPOKE WITH [facility] TRANSFER ACCESS. REPORT GIVEN AND FACESHEET FAXED TO [phone] PER REQUEST.
[2017-04-14 12:19] VITALS: BP 137/87
--- NOTE | 2017-04-14 13:05 | NUR ---
C/O PAIN 02/25. MORPHINE ADMINISTERED PER PRN ORDER. DENIES FURTHER NEEDS. SIDE RAILS UP X2. BED IN LOW POSITION. CALL LIGHT IN REACH.
--- NOTE | 2017-04-14 14:26 | NUR ---
OT NOTE: PT INITALLY REPORTED THAT HE WAS HAVING A BAD DAY. ASKED PT IF HE COULD SIT UP IN BED AND ATTEMPT AN ACTIVITY. PT ABLE TO PERFORM BED MOB INDEP AND STATIC AND DYANMIC SITTING BALANCE WAS FAIR+/GOOD-. PT ATTEMPTED TO WRITE HIS NAME AND BECAME VERY FRUSTRATED. HE SMASHED HIS HAND DOWN ON THE CLIP BOARD SO HARD THAT HE BROKE IT INTO PIECES. PT THEN BECAME VERY TEARFUL AND APPOLOGETIC, BUT STATED THAT HE WAS SO FRUSTRATED WITH ALL OF THIS. FRUSTRATED ABOUT THE UNKNOWN/PROGNOSIS AND FRUSTRATED THAT HE CANT WRITE HIS NAME OR DO ANYTHING THAT HE ONCE COULD DO.. SPOKE WITH PT IN DEPTH ABOUT THE IMPROVEMENT HE HAS MADE THUS FAR, BUT ALSO UNDERSTOOD HIS FRUSTRATION. AFTER EXTENSIVE CONVERSATION, PT ATTEMPTED AGAIN, AND THIS TIME, HE WAS ABLE TO WRITE HIS NAME BY INVISIONING LETTERS WITH EYES CLOSED THEN WRITTING ON PAPER. HIS FINE MOTOR MANIPULATION WAS ALSO BETTER, HE WAS ABLE TO TAKE PEN AND REPOSITION IT CORRECTLY AND PLACE ENOUGH PRESSURE ON PEN TO LOOP MACHINE OPERATOR IT WHILE WRITTING HIS NAME.
[2017-04-14 15:59] VITALS: BP 132/73
--- NOTE | 2017-04-14 17:38 | NUR ---
ALERT IN BED VISITING WITH GUEST. NO SIGNS OF DISTRESS NOTED. DENIES NEEDS. SIDE RAILS UP X2. BED IN LOW POSITION. CALL LIGHT IN REACH.
--- NOTE | 2017-04-14 17:45 | NUR ---
OT NOTE: PT COMPLETED BED MOB WITH SPV AND FM TASKS FOR INCREASED I WITH ADLS. THANK YOU, AMISH BRAGA/Rupinder
[2017-04-14 20:00] VITALS: BP 144/86
--- NOTE | 2017-04-14 21:49 | NUR ---
REC'D LYING IN BED. ALERT AND ORIENTED X4. REPORTED PAIN 6/10. WILL ADMIN PAIN MEDS PRESCRIBED. DENIED FURTHER NEEDS AT THIS TIME. INSTRUCTED TO CALL IF NEEDED ANYTHING. VERBALIZED UNDERSTANDING. NO DISTRESS NOTED. BED LOW, LOCKED, CALL LIGHT IN REACH.
--- NOTE | 2017-04-14 22:15 | NUR ---
PATIENT IS AWAKE, ALERT AND ORIENTED X'S 4. RESPIRATIONS ARE EVEN AND UNLABORED ON ROOM AIR. PATIENT REQUESTED APPLE JUICE, BROUGHT HIM 8OZ OF APPLE JUICE. HE DENIES ANY OTHER NEEDS AT THIS TIME. BED IN LOWEST POSITION, CALL LIGHT IN REACH. BED RIALS UP X'S 2.
[2017-04-15] VITALS: BP 129/81
[2017-04-15 04:00] VITALS: BP 150/73
--- NOTE | 2017-04-15 07:50 | NUR ---
AWAKE AND ALERT. ORIENTED X3. REQUESTED PIAN MEDS THIS AM BUT TO SOON FOR PRN'S. WILL MONITOR. LUNGS ARE CLEAR BILATERALLY, NO COUGH NOTED. SKIN IS INTACT WITHOUT REDNESS EXCEPT INCISION TO FRONT OF HEAD WHICH IS CLEAN AND DRY WITH CLIPS INTACT. IV TO LEFT FOREARAM IS PATENT WITHOUT REDNESS AT INSERTION SITE. DENIES FURTHER NEEDS.
[2017-04-15 07:57] VITALS: BP 129/80
--- NOTE | 2017-04-15 09:30 | NUR ---
UP TO SHOWER WITH DAD'S ASSIST. REQUESTED AND GIVEN 4M G MORPHINE SLOW IVP FOR C/O HEADACHE PAIN LEVEL 10. WILL MONITOR.
[2017-04-15 12:15] VITALS: BP 137/82
--- NOTE | 2017-04-15 12:15 | NUR ---
LUNCH SERVED IN ROOM. DIDN'T EAT MUCH OF TRAY BUT DAD BROUGHT HIM FOOD WHICH HE ATE. DENIES NEEDS.
--- NOTE | 2017-04-15 13:50 | NUR ---
REQUESTED AND GIVEN 600MG MOTRIN PO FOR C/O FARLEY. WILL MONITOR.
--- NOTE | 2017-04-15 14:30 | NUR ---
AMBULATED IN HALLWAY WITH FATHER. NO C/O AT THIS TIME.
--- NOTE | 2017-04-15 14:38 | NUR ---
NUTRITION F/U DIET ADVANCED TO REG WITH THIN LIQUIDS. 100% INTAKE RECENT MEALS. WILL CONTINUE TO HONOR FOOD PREFERENCES, MONITOR PO INTAKE. RD FOLLOWING
--- NOTE | 2017-04-15 16:15 | NUR ---
REQUESTED AND GIVEN 4MG MORPHINE SLOW IVP FOR C/O HEADACHE LEVEL 8. WILL MONITOR.
--- NOTE | 2017-04-15 18:28 | NUR ---
ATE FOOD BROUGHT IN FROM OUTSIDE. DENIES NEEDS. NO CHANGES NOTED.
[2017-04-15 20:00] VITALS: BP 133/82
--- NOTE | 2017-04-15 23:14 | NUR ---
2000) REC'D. CALL FROM [facility] BED AVAILABLE [id number].([id number])DR. WHITE NOTIFIED OF TRANSFER. ATTEMPTED TO NOTIFY DR. EDWARDS REQUESTED TO DO BY TICKET COLLECTOR GERMAN PÉREZ NO RESPONSE.FAMILY HERE.REPORT CALLED TO [facility]. GIVEN TO GERRY WOLFE RN.TRANSFER PAPERS REVIEWED BY TESHA PORTER RN AND APPROVED FOR TRANSFER.[id number])) [facility] CALLED TO REQUEST TRANSFER.[id number] [facility] HERE TRANFERED TO [facility] VIA STRETCHER.
[2017-04-16 15:24] LABS: FUNGUS STAIN Final report (())
[2017-04-16 18:09] LABS: AFB SPECIMEN PROCESSING Not Indicated (())
[2017-04-16 19:11] LABS: AEROBE ID Final report (())
--- NOTE | 2017-04-20 14:27 | OP ---
PATIENT NAME: DEBI MARVIN MEDICAL RECORD: [id number] :88 LOCATION:D.[id number] ADMISSION DATE:04/02/17 SURGEON: MIKE MENSAH MD DATE OF OPERATION: 04/07/2017 PREOPERATIVE DIAGNOSIS: Right frontal brain tumor. POSTOPERATIVE DIAGNOSIS: Right frontal brain tumor. PROCEDURE: Right frontal craniotomy with a stereotactic navigation for guidance and intraoperative tumor resection. DESCRIPTION OF TECHNIQUE: After induction of general endotracheal anesthesia, the patient was positioned supine on the operating table. The scalp was prepped and draped in usual sterile fashion after registration took place with a [employer] navigation system and fiducial markers. A scalp flap and skull flap were planned using the [employer] navigation. After sterile prep and drape, a 1:100,000 epinephrine and 1% lidocaine was infiltrated into the soft tissue of the scalp. A coronal incision was carried out from just across midline to the right frontal convexity. Lauro clips were applied to the scalp for hemostasis. A self-retaining retractor was placed in the wound. Two patricio holes were placed on the midline and then a third patricio hole was placed approximately 5 cm off midline. These patricio holes were connected with the Midas Rinku drill using a foot plate attachment. The skull flap was elevated without difficulty. The dura was opened in a cruciate manner with bipolar cautery and a #11 blade. The tumor was also noted within the dural opening. Using a [employer] navigation, I advanced to the enhancing cyst on the MRI scan. Multiple biopsies were sent to pathology for diagnosis. The cyst was removed in toto and then incomplete specimen sent to pathology for diagnosis. Next, meticulous hemostasis was maintained throughout the wound. The wound was irrigated with copious amounts of lukewarm saline irrigant solution. The dura was reapproximated with an interrupted 4-0 Nurolon suture. The skull flap was replaced with titanium plates and screws. The Annmarie was reapproximated with interrupted 2-0 Vicryl suture. The skin was closed with kevin. A sterile dressing was applied to the wound. The patient was awakened in good condition and taken to recovery. All counts were reported as correct. Estimated blood loss was minimal. TRANSINT:[id number] Voice Confirmation ID: [id number] DOCUMENT ID: [id number] MIKE MENSAH MD at 1427 CC: [id number] DICTATION DATE: 04/07/171945 BISCUITWARE BRUSHER: 04/07/172209 DIS IN 04/15/17 [facility] [address] [facility] [place] [address]
[2017-04-28 19:12] LABS: AEROBE ID Final report (())
[2017-05-05 09:17] LABS: FUNGUS MYCOLOGY CULTURE Final report (())
[2017-05-14 14:21] LABS: FUNGUS MYCOLOGY CULTURE Final report (())
[2017-05-30 15:08] LABS: ACID FAST CULTURE Negative (()); ACID FAST SMEAR Negative (())
[2017-06-03 15:22] LABS: ACID FAST CULTURE Negative (()); ACID FAST SMEAR Negative (())
== END 2017-04-15 23:32 | disposition short-term general hospital (02) | DRG 24 ==
LOC: D.ER 07:42 → D.MS 11:50 → D.ICU 04-07 13:22 → D.MS 04-08 17:06
PROVIDERS: Family Medicine; Psychiatry & Neurology Neurology; Student in an Organized Health Care Education/Training Program; ADMIT Family Medicine
PROC: B01B1ZZ Fluoroscopy of Spinal Cord using Low Osmolar Contrast (ICD-10-PCS; principal; 2017-04-02)
PROC: 009U3ZX Drainage of Spinal Canal, Percutaneous Approach, Diagnostic (ICD-10-PCS; principal; 2017-04-02)
PROC: 00B20ZZ Excision of Dura Mater, Open Approach (ICD-10-PCS; 2017-04-07)
DX: G06.0 Intracranial abscess and granuloma (principal); I07.1 Rheumatic tricuspid insufficiency; R13.10 Dysphagia, unspecified; M62.838 Other muscle spasm; Z87.891 Personal history of nicotine dependence; R51 Headache

== ENCOUNTER → 2017-04-26 14:49 | Outpatient (CLI) | payer MEDICAID ==
[2017-04-08 10:03] VITALS: BMI 23.9
[2017-04-26 15:08] LABS: BASOPHILS 0.2 % (0-2); EOSINOPHILS 1.5 % (0-7); HEMATOCRIT 40.8 % (42.0-54.0); HEMOGLOBIN 13.9 g/dL (13.5-17.5); IMMATURE GRANULOCYTES 0.2 % (0-5); LYMPHOCYTES 17.5 % (15-50); MCH 29.8 pg (26.0-34.0); MCHC 34.1 g/dL (31.0-37.0); MCV 87.6 fL (80.0-100.0); MEAN PLATELET VOLUME 8.9 fL (7.4-10.4); MONOCYTES 7.6 % (2-11); RBC 4.66 10x6/uL (4.20-6.10); RDW 13.2 % (11.5-14.5); WBC 5.8 10x3/uL (4.8-10.8)
[2017-04-26 15:16] LABS: PLATELET COUNT 192 10x3/uL (130-400)
[2017-04-26 15:31] LABS: CREATININE - SERUM 0.7 mg/dL (0.6-1.3); VANCOMYCIN - TROUGH 15.6 ug/mL (10.0-20.0)
== END | disposition home or self-care (01) ==
LOC: D.LABREF 14:49
PROVIDERS: Internal Medicine
DX: Z51.81 Encounter for therapeutic drug level monitoring (principal); Z79.2 Long term (current) use of antibiotics; G04.90 Encephalitis and encephalomyelitis, unspecified

== ENCOUNTER → 2017-05-03 13:19 | Outpatient (CLI) | payer MEDICAID ==
[2017-04-08 10:03] VITALS: BMI 23.9
[2017-05-03 14:01] LABS: BASOPHILS 0 % (0-2); EOSINOPHILS 2.9 % (0-7); HEMATOCRIT 41.6 % (42.0-54.0); IMMATURE GRANULOCYTES 0.2 % (0-5); LYMPHOCYTES 21.5 % (15-50); MCH 29.9 pg (26.0-34.0); MCHC 33.7 g/dL (31.0-37.0); MCV 88.9 fL (80.0-100.0); MEAN PLATELET VOLUME 8.8 fL (7.4-10.4); MONOCYTES 6.9 % (2-11); NEUTROPHILS 68.5 % (40-80); PLATELET COUNT 225 10x3/uL (130-400); RBC 4.68 10x6/uL (4.20-6.10); RDW 13.3 % (11.5-14.5); WBC 4.2 10x3/uL (4.8-10.8)
[2017-05-03 14:17] LABS: CREATININE - SERUM 0.8 mg/dL (0.6-1.3); VANCOMYCIN - TROUGH 17.2 ug/mL (10.0-20.0)
== END | disposition home or self-care (01) ==
LOC: D.LABREF 13:19
PROVIDERS: Internal Medicine
DX: Z51.81 Encounter for therapeutic drug level monitoring (principal); Z79.2 Long term (current) use of antibiotics; G06.0 Intracranial abscess and granuloma

== ENCOUNTER → 2017-05-10 13:05 | Outpatient (CLI) | payer MEDICAID ==
[2017-04-08 10:03] VITALS: BMI 23.9
[2017-05-10 13:51] LABS: BASOPHILS 0.2 % (0-2); EOSINOPHILS 1.5 % (0-7); HEMATOCRIT 44.6 % (42.0-54.0); HEMOGLOBIN 15.2 g/dL (13.5-17.5); IMMATURE GRANULOCYTES 0.4 % (0-5); LYMPHOCYTES 22.3 % (15-50); MCH 29.8 pg (26.0-34.0); MCHC 34.1 g/dL (31.0-37.0); MCV 87.5 fL (80.0-100.0); MEAN PLATELET VOLUME 8.9 fL (7.4-10.4); MONOCYTES 12.3 % (2-11); NEUTROPHILS 63.3 % (40-80); RDW 12.9 % (11.5-14.5); WBC 4.6 10x3/uL (4.8-10.8)
[2017-05-10 13:54] LABS: PLATELET COUNT 280 10x3/uL (130-400)
[2017-05-10 13:56] LABS: VANCOMYCIN - TROUGH 21.3 ug/mL (10.0-20.0)
== END | disposition home or self-care (01) ==
LOC: D.LABREF 13:05
PROVIDERS: Internal Medicine
DX: G06.0 Intracranial abscess and granuloma (principal); B95.7 Other staphylococcus as the cause of diseases classified elsewhere; Z79.2 Long term (current) use of antibiotics

== ENCOUNTER → 2017-05-17 14:15 | Outpatient (CLI) | payer MEDICAID ==
[2017-04-08 10:03] VITALS: BMI 23.9
[2017-05-17 16:37] LABS: BASOPHILS 0 % (0-2); HEMATOCRIT 45.7 % (42.0-54.0); HEMOGLOBIN 15.7 g/dL (13.5-17.5); IMMATURE GRANULOCYTES 0.2 % (0-5); LYMPHOCYTES 15.9 % (15-50); MCH 30.1 pg (26.0-34.0); MCHC 34.4 g/dL (31.0-37.0); MCV 87.7 fL (80.0-100.0); MEAN PLATELET VOLUME 9.5 fL (7.4-10.4); NEUTROPHILS 74.9 % (40-80); PLATELET COUNT 243 10x3/uL (130-400); RBC 5.21 10x6/uL (4.20-6.10); RDW 12.9 % (11.5-14.5); WBC 5.7 10x3/uL (4.8-10.8)
[2017-05-17 17:07] LABS: CREATININE - SERUM 0.9 mg/dL (0.6-1.3); VANCOMYCIN - TROUGH 18.4 ug/mL (10.0-20.0)
== END | disposition home or self-care (01) ==
LOC: D.LABREF 14:15
PROVIDERS: Internal Medicine
DX: Z51.81 Encounter for therapeutic drug level monitoring (principal); Z79.2 Long term (current) use of antibiotics

== ENCOUNTER → 2017-05-24 13:18 | Outpatient (CLI) | payer MEDICAID ==
[2017-04-08 10:03] VITALS: BMI 23.9
[2017-05-24 14:05] LABS: BASOPHILS 0 % (0-2); EOSINOPHILS 1.7 % (0-7); HEMATOCRIT 42.3 % (42.0-54.0); HEMOGLOBIN 14.8 g/dL (13.5-17.5); IMMATURE GRANULOCYTES 0.2 % (0-5); LYMPHOCYTES 23.2 % (15-50); MCV 85.6 fL (80.0-100.0); MEAN PLATELET VOLUME 9.3 fL (7.4-10.4); NEUTROPHILS 64.9 % (40-80); PLATELET COUNT 215 10x3/uL (130-400); RBC 4.94 10x6/uL (4.20-6.10); RDW 12.6 % (11.5-14.5); WBC 4.7 10x3/uL (4.8-10.8)
== END | disposition home or self-care (01) ==
LOC: D.LABREF 13:18
PROVIDERS: Internal Medicine
DX: Z51.81 Encounter for therapeutic drug level monitoring (principal); Z79.2 Long term (current) use of antibiotics; B95.7 Other staphylococcus as the cause of diseases classified elsewhere

== ENCOUNTER 2017-07-17 14:28 | Emergency (ER) | payer OTHER ==
[2017-04-08 10:03] VITALS: BMI 23.9
== END 2017-07-17 17:57 | disposition home or self-care (01) ==
LOC: D.ER 14:28
DX: S09.90XA Unspecified injury of head, initial encounter (principal); W22.8XXA Striking against or struck by other objects, initial encounter; Y93.89 Activity, other specified; Y92.019 Unspecified place in single-family (private) house as the place of occurrence of the external cause; Z86.73 Personal history of transient ischemic attack (TIA), and cerebral infarction without residual deficits

== ENCOUNTER 2017-08-17 09:18 | Emergency (ER) | payer OTHER ==
[2017-04-08 10:03] VITALS: BMI 23.9
== END 2017-08-17 10:42 | disposition home or self-care (01) ==
LOC: D.ER 09:18
DX: J06.9 Acute upper respiratory infection, unspecified (principal); J01.90 Acute sinusitis, unspecified; Z86.73 Personal history of transient ischemic attack (TIA), and cerebral infarction without residual deficits

== ENCOUNTER 2017-12-19 20:04 | Emergency (ER) | payer OTHER ==
[2017-04-08 10:03] VITALS: BMI 23.9
== END 2017-12-19 20:21 | disposition home or self-care (01) ==
LOC: D.ER 20:04
DX: K04.7 Periapical abscess without sinus (principal); K02.9 Dental caries, unspecified

== ENCOUNTER 2017-12-21 09:20 | Emergency (ER) | payer OTHER ==
[~2017-12-21] VITALS: Ht 203.2 cm; Wt 113.6 kg
[2017-12-21 09:33] VITALS: Ht 203.2 cm; Wt 113.6 kg
[2017-12-21 10:35] LABS: BASOPHILS 0 % (0-2); EOSINOPHILS 0.6 % (0-7); HEMATOCRIT 41.4 % (42.0-54.0); HEMOGLOBIN 14.1 g/dL (13.5-17.5); IMMATURE GRANULOCYTES 0.1 % (0-5); LYMPHOCYTES 9.5 % (15-50); MCH 29.9 pg (26.0-34.0); MCHC 34.1 g/dL (31.0-37.0); MCV 87.7 fL (80.0-100.0); MEAN PLATELET VOLUME 8.6 fL (7.4-10.4); MONOCYTES 7.6 % (2-11); NEUTROPHILS 82.2 % (40-80); PLATELET COUNT 228 10x3/uL (130-400); RBC 4.72 10x6/uL (4.20-6.10); RDW 12.7 % (11.5-14.5); WBC 9.6 10x3/uL (4.8-10.8)
[2017-12-21 10:48] LABS: ALBUMIN 3.9 g/dL (3.4-5.0); ANION GAP 9.6 mmol/L (8-16); BILIRUBIN - TOTAL 0.56 mg/dL (0.2-1.3); CALCIUM 8.8 mg/dL (8.5-10.1); CARBON DIOXIDE 28.9 mmol/L (21.0-32.0); CREATININE - SERUM 1.3 mg/dL (0.6-1.3); POTASSIUM - SERUM 3.5 mmol/L (3.5-5.1)
[2017-12-21 10:57] LABS: THYROID STIMULATING HORMONE 1.39 uIU/mL (0.36-3.74)
[2017-12-21] MEDS ORDERED: KEPPRA750 MG PO (11:49)
[2017-12-21 12:20] LABS: UDS - AMPHET NEGATIVE QUAL (NEGATIVE); UDS - BARB NEGATIVE QUAL (NEGATIVE); UDS - BENZO NEGATIVE QUAL (NEGATIVE); UDS - COCAINE NEGATIVE QUAL (NEGATIVE); UDS - OPIATE NEGATIVE QUAL (NEGATIVE); UDS - PCP NEGATIVE QUAL (NEGATIVE); UDS - THC NEGATIVE QUAL (NEGATIVE)
[2017-12-21 12:50] VITALS: BP 132/81
== END 2017-12-21 12:48 | disposition home or self-care (01) ==
LOC: D.ER 09:20
PROVIDERS: Family Medicine
DX: R56.9 Unspecified convulsions (principal); F17.200 Nicotine dependence, unspecified, uncomplicated

== ENCOUNTER 2018-01-11 23:19 | Day surgery (SDC) | payer OTHER ==
[~2018-01-11] VITALS: Ht 203.2 cm; Wt 86.4 kg
--- NOTE | ~2018-01-11 | OP ---
PATIENT NAME: DEBI MARVIN MEDICAL RECORD: [id number] :88 LOCATION:D.OPS ADMISSION DATE: SURGEON: ADRYAN GOTTI MD DATE OF OPERATION: 01/12/2018 PREOPERATIVE DIAGNOSIS: Displaced tuberosity fracture of the left shoulder. POSTOPERATIVE DIAGNOSIS: Displaced tuberosity fracture of the left shoulder. PROCEDURE: Open reduction internal fixation of displaced tuberosity fracture. SURGEON: Adryan Gotti MD ANESTHESIA: General. INTRAOPERATIVE COMPLICATIONS: None. SUMMARY OF PATHOLOGIC FINDINGS: The patient was indeed found to have displaced tuberosity fracture consistent with preoperative diagnosis. Please note the above was done under fluoroscopic guidance. OPERATIVE SUMMARY IN DETAIL: After obtaining the appropriate preoperative orthopedic surgery consent as well as anesthetic consultation, evaluation and clearance, the patient was brought to the operating room and placed on the operating table in supine position. After general laryngeal mask was administered, the patient was placed in the beach chair position. All pressure points were well padded. He was held firmly to the operating table using the vacuum pack suction system. Left upper extremity and shoulder were then prepped and draped in a routine sterile fashion. The arm was held in the Trimano arm holding device. Under direct fluoroscopic visualization, incision was made directly over the greater tuberosity. Care was taken to dissect down through the superficial and deep fascia of the deltoid where the greater tuberosity was found. It was mobilized and freed from any adhesions, placed back in its original position. At this point, the Fixos compression screws times 2 were utilized to fix the greater tuberosity back into position and the rotator cuff tear was repaired on the anterior and posterior aspect of the fracture. Having completed this, the wound was irrigated. The deep deltoid fascia was closed followed by the superficial deltoid fascia. This was then followed by #1 Vicryl, 2-0 Vicryl, and skin kevin. Sterile dressings were applied. The patient was awakened and taken to the recovery room in stable condition. All final needle and sponge counts were correct. TRANSINT:[id number] Voice Confirmation ID: [id number] DOCUMENT ID: [id number] ADRYAN GOTTI MD at 1150 CC: [id number] DICTATION DATE: 01/27/18 1555 ACADEMIC REGISTRAR: 01/27/18 1633 [facility] 01/13/18 [facility] [address] [place] [address]
[~2018-01-11 23:19] MED LIST: KEPPRA750 MG PO
[2018-01-11 23:56] LABS: HEMATOCRIT 42.8 % (42.0-54.0); LYMPHOCYTES 23.1 % (15-50); MCH 29.6 pg (26.0-34.0); MCV 84.4 fL (80.0-100.0); MEAN PLATELET VOLUME 8.5 fL (7.4-10.4); NEUTROPHILS 72.4 % (40-80); RBC 5.07 10x6/uL (4.20-6.10); WBC 11.8 10x3/uL (4.8-10.8)
[2018-01-11 23:57] LABS: PLATELET COUNT 320 10x3/uL (130-400)
[2018-01-12] VITALS (10 sets, daily range): BP systolic 103–154; BP diastolic 67–89
[2018-01-12 00:12] LABS: ALBUMIN 3.9 g/dL (3.4-5.0); ANION GAP 16.7 mmol/L (8-16); BILIRUBIN - TOTAL 0.27 mg/dL (0.2-1.3); CALCIUM 8.8 mg/dL (8.5-10.1); CARBON DIOXIDE 22.5 mmol/L (21.0-32.0); CREATININE - SERUM 1.7 mg/dL (0.6-1.3); POTASSIUM - SERUM 3.2 mmol/L (3.5-5.1); PROTEIN - SERUM 7.1 g/dL (6.4-8.2)
[2018-01-13 02:49] VITALS: BP 147/86; Ht 203.2 cm; Wt 86.4 kg
[2018-01-13 04:00] VITALS: BP 128/80
[2018-01-13 08:11] VITALS: BP 136/90
[2018-01-13] MEDS ORDERED: PERCOCET 10/3251 TA1 PO (08:49)
== END 2018-01-13 10:45 | disposition home or self-care (01) ==
LOC: OBSVTIME → D.OPS 23:19 → D.ER 23:19 → D.MS 01-12 02:25 → OBSVTIME 01-12 02:25 → D.EDHOLD 01-12 02:25 → D.ER 01-12 02:25 → EDSTATUS 01-12 13:00 → D.EDHOLD 01-12 15:17 → D.MS 01-12 15:17 → D.OPS 01-13 10:45
PROVIDERS: Family Medicine
DX: S43.005A Unspecified dislocation of left shoulder joint, initial encounter (principal); F17.200 Nicotine dependence, unspecified, uncomplicated; S42.92XA Fracture of left shoulder girdle, part unspecified, initial encounter for closed fracture; X58.XXXA Exposure to other specified factors, initial encounter; M75.102 Unspecified rotator cuff tear or rupture of left shoulder, not specified as traumatic; G40.909 Epilepsy, unspecified, not intractable, without status epilepticus; Z79.899 Other long term (current) drug therapy; Z01.812 Encounter for preprocedural laboratory examination

== ENCOUNTER 2018-02-28 17:52 | Emergency (ER) | payer OTHER ==
[~2018-02-28] VITALS: Ht 203.2 cm; Wt 104.5 kg
[~2018-02-28 17:52] MED LIST changes: +PERCOCET 10/3251 TA1 PO
[2018-02-28 18:00] VITALS: Ht 203.2 cm; Wt 104.5 kg
[2018-02-28 18:30] LABS: BASOPHILS 0.1 % (0-2); HEMATOCRIT 41.5 % (42.0-54.0); HEMOGLOBIN 14.6 g/dL (13.5-17.5); IMMATURE GRANULOCYTES 0.3 % (0-5); LYMPHOCYTES 28.6 % (15-50); MCH 29.7 pg (26.0-34.0); MCHC 35.2 g/dL (31.0-37.0); MCV 84.5 fL (80.0-100.0); MEAN PLATELET VOLUME 9.2 fL (7.4-10.4); MONOCYTES 4.7 % (2-11); NEUTROPHILS 64.3 % (40-80); RBC 4.91 10x6/uL (4.20-6.10); RDW 12.7 % (11.5-14.5); WBC 9.6 10x3/uL (4.8-10.8)
[2018-02-28 18:39] LABS: PLATELET COUNT 199 10x3/uL (130-400)
[2018-02-28 18:47] LABS: ALBUMIN 3.7 g/dL (3.4-5.0); ANION GAP 22.3 mmol/L (8-16); BILIRUBIN - TOTAL 0.41 mg/dL (0.2-1.3); CALCIUM 8.9 mg/dL (8.5-10.1); CARBON DIOXIDE 18.6 mmol/L (21.0-32.0); CREATININE - SERUM 1.6 mg/dL (0.6-1.3); POTASSIUM - SERUM 3.9 mmol/L (3.5-5.1); PROTEIN - SERUM 6.3 g/dL (6.4-8.2)
[2018-02-28 19:07] LABS: APPEARANCE CLEAR (CLEAR); BILIRUBIN NEGATIVE (NEGATIVE); COLOR YELLOW (YELLOW); GLUCOSE NEGATIVE (NEGATIVE); KETONE MODERATE mg/dL (NEGATIVE); NITRITE NEGATIVE (NEGATIVE); PROTEIN TRACE mg/dL (NEGATIVE); SPECIFIC GRAVITY 1.025 (1.005-1.020); UROBILINOGEN NORMAL (NORMAL)
[2018-02-28 20:10] LABS: UDS - AMPHET NEGATIVE QUAL (NEGATIVE); UDS - BARB NEGATIVE QUAL (NEGATIVE); UDS - BENZO NEGATIVE QUAL (NEGATIVE); UDS - COCAINE NEGATIVE QUAL (NEGATIVE); UDS - OPIATE POSITIVE QUAL (NEGATIVE); UDS - PCP NEGATIVE QUAL (NEGATIVE); UDS - THC NEGATIVE QUAL (NEGATIVE)
[2018-02-28 21:40] VITALS: BP 124/62
[2018-03-01] MEDS ORDERED: EC-NAPROSYN500 MG PO (12:41)
== END 2018-02-28 21:40 | disposition home or self-care (01) ==
LOC: D.ER 17:52
PROVIDERS: Family Medicine
DX: S00.93XA Contusion of unspecified part of head, initial encounter (principal); V49.9XXA Car occupant (driver) (passenger) injured in unspecified traffic accident, initial encounter; Y93.89 Activity, other specified; Y92.410 Unspecified street and highway as the place of occurrence of the external cause; Z91.14 Patient's other noncompliance with medication regimen

== ENCOUNTER 2018-03-01 11:28 | Emergency (ER) | payer OTHER ==
[~2018-03-01] VITALS: Ht 203.2 cm; Wt 100.0 kg
[2018-03-01 11:46] VITALS: BP 124/72; Ht 203.2 cm; Wt 100.0 kg
[2018-03-01] MEDS ORDERED: EC-NAPROSYN500 MG PO (12:41)
== END 2018-03-01 12:58 | disposition home or self-care (01) ==
LOC: D.ER 11:28
DX: S46.912A Strain of unspecified muscle, fascia and tendon at shoulder and upper arm level, left arm, initial encounter (principal); V49.9XXA Car occupant (driver) (passenger) injured in unspecified traffic accident, initial encounter; Y93.89 Activity, other specified; Y92.410 Unspecified street and highway as the place of occurrence of the external cause; M54.2 Cervicalgia; F17.200 Nicotine dependence, unspecified, uncomplicated

== ENCOUNTER 2018-08-15 18:25 | Emergency (ER) | payer OTHER ==
[~2018-08-15] VITALS: Ht 203.2 cm; Wt 95.5 kg
[~2018-08-15 18:25] MED LIST changes: +EC-NAPROSYN500 MG PO
[2018-08-15 18:33] VITALS: BP 128/90; Ht 203.2 cm; Wt 95.5 kg
[2018-08-15 19:33] LABS: BASOPHILS 0.1 % (0-2); HEMOGLOBIN 14.2 g/dL (13.5-17.5); LYMPHOCYTES 19.7 % (15-50); MCH 30.4 pg (26.0-34.0); MCHC 34.6 g/dL (31.0-37.0); MCV 87.8 fL (80.0-100.0); MEAN PLATELET VOLUME 8.6 fL (7.4-10.4); MONOCYTES 5.7 % (2-11); NEUTROPHILS 73.5 % (40-80); PLATELET COUNT 233 10x3/uL (130-400); RBC 4.67 10x6/uL (4.20-6.10); RDW 13.1 % (11.5-14.5); WBC 8.1 10x3/uL (4.8-10.8)
[2018-08-15 19:53] LABS: ALKALINE PHOSPHATASE 50 U/L (46-116); ALT (SGPT) 30 U/L (10-68); BILIRUBIN - TOTAL 0.22 mg/dL (0.2-1.3); CALC OSMOLALITY 280 mosm/kg (275-300); CALCIUM 8.4 mg/dL (8.5-10.1); CARBON DIOXIDE 24.9 mmol/L (21.0-32.0); CHLORIDE - SERUM 105 mmol/L (98-107); GLUCOSE 88 mg/dL (74-106); POTASSIUM - SERUM 4.3 mmol/L (3.5-5.1); PROTEIN - SERUM 7.1 g/dL (6.4-8.2); SODIUM 139 mmol/L (136-145); UREA NITROGEN 24 mg/dL (7-18); eGFR NON AFRICAN AMERICAN > 90 mL/min (90-120)
[2018-08-15] MEDS ORDERED: TORADOL10 MG PO (21:07)
== END 2018-08-15 21:25 | disposition home or self-care (01) ==
LOC: D.ER 18:25
PROVIDERS: Family Medicine
DX: S46.912A Strain of unspecified muscle, fascia and tendon at shoulder and upper arm level, left arm, initial encounter (principal); W18.30XA Fall on same level, unspecified, initial encounter; Y93.89 Activity, other specified; Y92.019 Unspecified place in single-family (private) house as the place of occurrence of the external cause; Z91.14 Patient's other noncompliance with medication regimen; G40.909 Epilepsy, unspecified, not intractable, without status epilepticus; Z86.61 Personal history of infections of the central nervous system